=== PATIENT | female | born 1975 | race Caucasian/White ===

== ENCOUNTER 2017-04-29 18:46 | Emergency (ER) | payer SELFPAY ==
[~2017-04-29 18:46] MED LIST: CLEO300C2 PO
[2017-04-29 18:47] VITALS: BP 143/75; PULSE 78; RESP 15; TEMP 98.8; O2SAT 98
--- NOTE | 2017-04-29 19:24 | PD ---
HPI Chief Complaint: Complaint Time Seen by Provider: 19:17 Travel History International Travel<30 days: No Contact w/Intl Traveler<30days: No Traveled to known affect area: No History of Present Illness HPI 42-year-old female presents to the ED for evaluation of 2 day history of urinary urgency, urinary frequency and 10/10 dysuria. Gradual onset. No modifying factors reported. She endorses mild nausea. Patient denies fever, chills, abdominal pain, vomiting, back pain, vaginal discharge. She states that the symptoms are similar to previous history of UTI. She treated at home with Pyridium with some improvement of her symptoms. PFSH Past Medical History Diminished Hearing: No ?: Not LMP: 04/29/17 Tubal Ligation: Yes Past Surgical History Oral Surgery: Yes (SEPTO RHINOPLASTY) Social History Alcohol Use: Yes (RARELY) Tobacco Use: No Substance Use: No Allergies-Medications (Allergen,Severity, Reaction): Coded Allergies: No Known Allergies (Verified , 03/26/15) Reported Meds & Prescriptions Reported Meds & Active Scripts Active Cleocin (Clindamycin HCl) 300 Mg Cap 1 Tab PO Q6 10 Days Review of Systems Except as stated in HPI: all other systems reviewed are Neg Physical Exam Narrative GENERAL: Well-nourished, well-developed nontoxic appearing white female in no acute distress.. SKIN: Focused skin assessment warm/dry. HEAD: Normocephalic. EYES: No scleral icterus. No injection or drainage. NECK: Supple, trachea midline. No JVD or lymphadenopathy. CARDIOVASCULAR: Regular rate and rhythm without murmurs, gallops, or rubs. RESPIRATORY: Breath sounds clear and equal bilaterally. No accessory muscle use. GASTROINTESTINAL: Abdomen soft, nondistended. Mildly tender in the suprapubic region. Active bowel sounds. MUSCULOSKELETAL: No cyanosis, or edema. BACK: Nontender without obvious deformity. No CVA tenderness. Data Data Last Documented VS Vital Signs Date Time Temp Pulse Resp B/P (MAP) Pulse Ox O2 Delivery O2 Flow Rate FiO2 04/29/17 18:47 98.8 78 15 143/75 (97) 98 Orders Orders Urinalysis - C+S If Indicated (04/29/17 18:59) MDM Medical Decision Making Medical Screen Exam Complete: Yes Emergency Medical Condition: Yes Differential Diagnosis Cystitis versus pyelonephritis versus bladder spasm versus less likely STI versus other Narrative Course 42-year-old female presents to the ED for evaluation of 2 day history of urinary urgency, urinary frequency and 10/10 dysuria. Gradual onset. No modifying factors reported. She endorses mild nausea. Patient denies fever, chills, abdominal pain, vomiting, back pain, vaginal discharge. She states that the symptoms are similar to previous history of UTI. She treated at home with Pyridium with some improvement of her symptoms. Vitals reviewed. Physical exam reveals mild suprapubic tenderness but is otherwise reassuring. Urine sample was collected in triage. On recheck the patient's exam room is empty. I am unsure why the patient chose to leave AGAINST MEDICAL ADVICE. Diagnosis Primary Impression: Left against medical advice Disposition: 07 AGAINST MEDICAL ADVICE Condition: Stable Lor Chávez Apr 29, 2017 19:24
[2017-04-29 20:39] LABS: BACTERIA, URINE MANY /hpf; BLOOD, URINE MOD (NEG); COMMENT (UR) CULTURE INDICATED; CULTURE IF INDICATED CULTURE INDICATED; GLUCOSE,URINE NEG (NEG); KETONE, URINE NEG (NEG); MUCUS URINE FEW /lpf (OCC); NITRITE,URINE POS (NEG); SQUAMOUS EPITHELIAL CELL URINE 12 /hpf (0-5); URINE COLOR DARK-YELLOW (YELLW/STRAW)
== END 2017-04-29 20:19 | disposition left against medical advice (07) ==
LOC: NEPK 18:46
DX: R39.15 Urgency of urination (principal); R35.0 Frequency of micturition; R30.0 Dysuria; R11.0 Nausea; B96.20 Unspecified Escherichia coli [E. coli] as the cause of diseases classified elsewhere
CPT/HCPCS: 81001; 87077; 87086; 87186; 99282